=== PATIENT | male | born 1995 | race African-American/Black ===

== ENCOUNTER 2018-10-10 22:24 | Emergency (ER) | payer BC ==
[~2018-10-10] VITALS: Ht 185.4 cm; Wt 89.8 kg
[2018-10-10] MEDS ORDERED: ACETAMINOPHEN 325 MG TABLET PO ONE (22:45)
[2018-10-10] MEDS ORDERED: AZITHROMYCIN 250 MG TABLET PO ONE (22:45)
[2018-10-10] MEDS ORDERED: ACETAMINOPHEN ES 500 MG TABLET ONE (22:51)
[2018-10-10] MEDS ORDERED: AZITHROMYCIN 250 MG TABLET ONE (22:52)
--- NOTE | 2018-10-10 23:02 | NUR ---
Patient discharged to home in stable conditon. Written and verbal after care instructions given. Patient verbalizes understanding of instructions. Patient ambulated with stable gait.
[2018-10-10 23:19] VITALS: BP 135/73
== END 2018-10-10 23:20 | disposition home or self-care (01) ==
LOC: ER 22:32
DX: J02.9 Acute pharyngitis, unspecified (principal); R51 Headache
CPT/HCPCS: A4663; A9150; Q0144

== ENCOUNTER 2019-04-17 00:17 | Emergency (ER) | payer BC ==
[~2019-04-17] VITALS: Ht 185.4 cm; Wt 86.2 kg
[2019-04-17] MEDS ORDERED: DEXAMETHASONE 4 MG TABLET PO ONE (00:45)
[2019-04-17] MEDS ORDERED: IBUPROFEN 600 MG TABLET PO ONE (00:45)
[2019-04-17] MEDS ORDERED: IBUPROFEN 600 MG TABLET ONE (00:47)
[2019-04-17] MEDS ORDERED: DEXAMETHASONE 4 MG TABLET ONE (00:47)
[2019-04-17 01:23] VITALS: BP 117/80
--- NOTE | 2019-04-17 01:23 | NUR ---
Patient discharged to home in stable conditon. Written and verbal after care instructions given. Patient verbalizes understanding of instructions.
== END 2019-04-17 01:23 | disposition home or self-care (01) ==
LOC: ER 00:25
DX: J02.8 Acute pharyngitis due to other specified organisms (principal)
CPT/HCPCS: 36415; 86403; 87070; 99283; J8540; A4663

== ENCOUNTER 2019-05-07 10:48 | Emergency (ER) | payer BC ==
[~2019-05-07] VITALS: Ht 185.4 cm; Wt 86.2 kg
--- NOTE | 2019-05-07 10:56 | NUR ---
Patient is AOx4, speaking in complete sentences, speech is clear. Patient is able to follow /comprehend directions. Gait is stable. No cardiovascular distress noted. Rate and rhythm are regular. No CP. No respiratory distress noted. Respirations even & unlabored with symmetrical chest rise. No adventitious sounds noted. Chief complaint: URI Patient denies Fever/Chills. No recent travel. ALLERGY TO [place].-ETOH/ -recreational drug use/ nonsmoker. monitored accordingly
--- NOTE | 2019-05-07 11:31 | NUR ---
Patient discharged to home in stable conditon. Written and verbal after care instructions given. Patient verbalizes understanding of instructions. AMBULATORY W/ STABLE GAIT ALL BELONGINGS W/ PT
[2019-05-07 11:36] VITALS: BP 131/85
== END 2019-05-07 11:37 | disposition home or self-care (01) ==
LOC: ER 10:48 → MERGE 10:48 → ER 11:37
DX: J06.9 Acute upper respiratory infection, unspecified (principal)
CPT/HCPCS: A4663